=== PATIENT | female | born 2000 | race African-American/Black ===

== ENCOUNTER 2019-02-17 12:41 | Emergency (ER) | payer SELFPAY ==
--- NOTE | 2019-02-17 13:17 | ER ---
Nurse's Notes [facility] Name: Reema Jackman Age: 18 yrs Sex: Female : 2000 Arrival Date: 02/17/2019 Time: 12:42 Bed 9 Private MD: Diagnosis: Low back pain Presentation: 02/17 13:03 Presenting complaint: Patient states: "My back was hurting earlier today, but its not aj1 hurting anymore, but my job said I had to come in and get a note saying that its not hurting and I have no restrictions". Transition of care: patient was not received from another setting of care. Onset of symptoms was February 17, 2019. Risk Assessment: Do you want to hurt yourself or someone else? Patient reports no desire to harm self or others. Initial Sepsis Screen: Does the patient meet any 2 criteria? No. Patient's initial sepsis screen is negative. Does the patient have a suspected source of infection? No. Patient's initial sepsis screen is negative. Care prior to arrival: None. 13:03 Method Of Arrival: Ambulatory [facility] 13:03 Acuity: ADITYA 5 aj1 Triage Assessment: 13:04 General: Appears in no apparent distress. comfortable, Behavior is calm, cooperative, aj1 appropriate for age. Pain: Denies pain. EENT: No signs and/or symptoms were reported regarding the EENT system. Neuro: Level of Consciousness is awake, alert, obeys commands. Cardiovascular: Patient's skin is warm and dry. Respiratory: Airway is patent Respiratory effort is even, unlabored, Respiratory pattern is regular, symmetrical. GI: No signs and/or symptoms were reported involving the gastrointestinal system. : No signs and/or symptoms were reported regarding the genitourinary system. Derm: No signs and/or symptoms reported regarding the dermatologic system. Skin is pink, warm \\T\\ dry. normal. Musculoskeletal: No signs and/or symptoms reported regarding the musculoskeletal system. Circulation, motion, and sensation intact. 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 - Social history:: Smoking status: Patient/guardian denies using tobacco. - Ebola Screening: : Patient denies travel to an Ebola-affected area in the 21 days before illness onset. - Family history:: not pertinent. - Hospitalizations: : No recent hospitalization is reported. Screenin:05 Abuse screen: Denies threats or abuse. Denies injuries from another. Nutritional aj1 screening: No deficits noted. Tuberculosis screening: No symptoms or risk factors identified. Fall Risk None identified. Assessment: 13:05 Reassessment: see triage assessment. aj1 13:05 General: Appears comfortable, Behavior is calm, cooperative. Pain: Denies pain. Neuro: aa5 Level of Consciousness is awake, alert, obeys commands, Oriented to person, place, time, situation. Cardiovascular: Patient's skin is warm and dry. Respiratory: Airway is patent Respiratory effort is even, unlabored, Respiratory pattern is regular, symmetrical. GI: No signs and/or symptoms were reported involving the gastrointestinal system. : No signs and/or symptoms were reported regarding the genitourinary system. EENT: No signs and/or symptoms were reported regarding the EENT system. Derm: Skin is dry, Skin is normal, Skin temperature is warm. Musculoskeletal: Range of motion: intact in all extremities. Vital Signs: 13:04 BP 126 / 85; Pulse 88; Resp 18; Temp 97.7; Pulse Ox 100% on R/A; Weight 77.11 kg (R); aj1 Height 5 ft. 1 in. (154.94 cm) (R); Pain 0/10; 13:04 Body Mass Index 32.12 (77.11 kg, 154.94 cm) aj1 ED Course: 12:42 Patient arrived in ED. as 13:03 Triage completed. aj1 13:04 Arm band placed on Patient placed in an exam room. aj1 13:05 Patient has correct armband on for positive identification. Call light in reach. aj1 13:05 No provider procedures requiring assistance completed. aj1 13:11 Petros Trammell MD is Attending Physician. rn 13:25 Patient did not have IV access during this emergency room visit. aa5 13:26 Nataliya Higgins, RN is Primary Nurse. aa5 Administered Medications: No medications were administered Outcome: 13:17 Discharge ordered by . rn 13:25 Discharged to home ambulatory. aa5 13:25 Condition: good 13:25 Discharge instructions given to patient, Instructed on discharge instructions, follow up and referral plans. Demonstrated understanding of instructions, follow-up care. 13:28 Patient left the ED. aa5 Signatures: Germania Mcdaniel RN RN aj1 Nina Yadav Roman, MD MD rn Calderon, Audri, RN RN aa5
--- NOTE | 2019-02-17 13:18 | EDPHYS ---
Physician Documentation [facility] Name: Reema Jackman Age: 18 yrs Sex: Female : 2000 Arrival Date: 02/17/2019 Time: 12:42 Bed 9 Private MD: ED Physician Petros Trammell HPI: 02/17 13:14 This 18 yrs old Black Female presents to ER via Ambulatory with complaints of Back Pain.rn 13:14 The patient presents with pain that is acute, with no known mechanism of injury. The rn symptoms are located in the low back. Onset: The symptoms/episode began/occurred last night. The pain does not radiate. Associated signs and symptoms: The patient has no apparent associated signs or symptoms, Pertinent negatives: abdominal pain, chest pain, constipation, dysuria, fever, headache, hematuria, incontinence, nausea, numbness, tingling, urinary retention, vomiting, weakness. Modifying factors: The patient symptoms are alleviated by OTC meds, rest, the patient symptoms are aggravated by nothing. Severity of symptoms: At their worst the symptoms were mild, in the emergency department the symptoms have resolved. Reports had back pain last night, no injury, no focal neuro complaints, no bowel/bladder issues, now resolved. Reports came here for release to work and nothing else. . 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 - Social history:: Smoking status: Patient/guardian denies using tobacco. - Ebola Screening: : Patient denies travel to an Ebola-affected area in the 21 days before illness onset. - Family history:: not pertinent. - Hospitalizations: : No recent hospitalization is reported. ROS: 13:14 Constitutional: Negative for fever, chills, and weight loss, Eyes: Negative for injury, rn pain, redness, and discharge, Cardiovascular: Negative for chest pain, palpitations, and edema, Respiratory: Negative for shortness of breath, cough, wheezing, and pleuritic chest pain, Abdomen/GI: Negative for abdominal pain, nausea, vomiting, diarrhea, and constipation, Back: Negative for injury : Negative for injury, bleeding, discharge, and swelling, MS/Extremity: Negative for injury and deformity, Skin: Negative for injury, rash, and discoloration, Neuro: Negative for headache, weakness, numbness, tingling, and seizure. Exam: 13:14 Constitutional: This is a well developed, well nourished patient who is awake, alert, rn and in no acute distress. Head/Face: Normocephalic, atraumatic. Neuro: Awake and alert, GCS 15, oriented to person, place, time, and situation. Cranial nerves II-XII grossly intact. Motor strength 5/5 in all extremities. Sensory grossly intact. Cerebellar exam normal. Normal gait. Vital Signs: 13:04 BP 126 / 85; Pulse 88; Resp 18; Temp 97.7; Pulse Ox 100% on R/A; Weight 77.11 kg (R); aj1 Height 5 ft. 1 in. (154.94 cm) (R); Pain 0/10; 13:04 Body Mass Index 32.12 (77.11 kg, 154.94 cm) aj1 MDM: 13:11 Patient medically screened. rn 13:14 Differential diagnosis: Fatigue Osteoarthritis muscle spasm. Data reviewed: vital rn signs, nurses notes, and as a result, I will discharge patient. Counseling: I had a detailed discussion with the patient and/or guardian regarding: the historical points, exam findings, and any diagnostic results supporting the discharge/admit diagnosis, the need for outpatient follow up, to return to the emergency department if symptoms worsen or persist or if there are any questions or concerns that arise at home. Special discussion: I discussed with the patient/guardian in detail that at this point there is no indication for admission to the hospital. It is understood, however, that if the symptoms persist or worsen the patient needs to return immediately for re-evaluation. Administered Medications: No medications were administered Disposition: 02/17/19 13:17 Discharged to Home. Impression: Low back pain. - Condition is Stable. - Discharge Instructions: Back Pain, Adult, Musculoskeletal Pain. - Medication Reconciliation Form, Thank You Letter, Antibiotic Education, Prescription Opioid Use, Work release form form. - Follow up: Private Physician; When: As needed; Reason: Recheck today's complaints, Re-evaluation by your physician. - Problem is new. - Symptoms have improved. Signatures: Germania Mcdaniel RN RN aj1 Petros Trammell MD MD rn Calderon, Audri, RN RN aa5 Corrections: (The following items were deleted from the chart) 13:28 13:17 02/17/2019 13:17 Discharged to Home. Impression: Low back pain. Condition is aa5 Stable. Forms are Medication Reconciliation Form, Thank You Letter, Antibiotic Education, Prescription Opioid Use. Follow up: Private Physician; When: As needed; Reason: Recheck today's complaints, Re-evaluation by your physician. Problem is new. Symptoms have improved. rn
[2019-02-17 13:39] VITALS: BP 126/85; TEMP 97.7; O2SAT 100
== END 2019-02-17 13:28 | disposition home or self-care (01) ==
LOC: ER 12:41
DX: M54.5 Low back pain (principal); I10 Essential (primary) hypertension
CPT/HCPCS: 99281

== ENCOUNTER 2019-03-17 19:15 | Emergency (ER) | payer SELFPAY ==
--- NOTE | 2019-03-17 19:57 | ER ---
Nurse's Notes [facility] Name: Reema Jackman Age: 19 yrs Sex: Female : 2000 Arrival Date: 03/17/2019 Time: 19:16 Bed 9 Private MD: Diagnosis: Dermatitis, unspecified Presentation: 03/17 19:21 Presenting complaint: Patient states: I have a rash in my vaginal area that has been tl1 there for 2 weeks. It doesn't itch or burn it just is sore when I wipe. Transition of care: patient was not received from another setting of care. Onset of symptoms is unknown. Risk Assessment: Do you want to hurt yourself or someone else? Patient reports no desire to harm self or others. Initial Sepsis Screen: Does the patient meet any 2 criteria? No. Patient's initial sepsis screen is negative. Does the patient have a suspected source of infection? No. Patient's initial sepsis screen is negative. Care prior to arrival: None. 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 - Social history:: Smoking status: Patient/guardian denies using tobacco, Patient/guardian denies using alcohol, street drugs. - Ebola Screening: : Patient negative for fever greater than or equal to 101.5 degrees Fahrenheit, and additional compatible Ebola Virus Disease symptoms Patient denies exposure to infectious person Patient denies travel to an Ebola-affected area in the 21 days before illness onset. Screenin:12 Abuse screen: Denies threats or abuse. Denies injuries from another. Nutritional aj1 screening: No deficits noted. Tuberculosis screening: No symptoms or risk factors identified. 20:13 Fall Risk None identified. aj1 Assessment: 20:12 General: Appears in no apparent distress. comfortable, Behavior is calm, cooperative, aj1 appropriate for age. Pain: Denies pain. Neuro: Level of Consciousness is awake, alert, obeys commands. Cardiovascular: Patient's skin is warm and dry. Respiratory: Airway is patent Respiratory effort is even, unlabored, Respiratory pattern is regular, symmetrical. GI: No signs and/or symptoms were reported involving the gastrointestinal system. : Reports she feels like she has a rash near her vagina. EENT: No signs and/or symptoms were reported regarding the EENT system. Derm: No signs and/or symptoms reported regarding the dermatologic system. Skin is pink, warm \T\ dry. normal. Musculoskeletal: No signs and/or symptoms reported regarding the musculoskeletal system. Circulation, motion, and sensation intact. Vital Signs: 19:23 BP 141 / 86; Pulse 86; Resp 18; Temp 98; Pulse Ox 99% on R/A; Weight 72.57 kg; Height 5 tl1 ft. 0 in. (152.40 cm); Pain 0/10; 19:23 Body Mass Index 31.25 (72.57 kg, 152.40 cm) tl1 ED Course: 19:16 Patient arrived in ED. cl3 19:23 Triage completed. tl1 19:25 Arm band placed on right wrist. tl1 19:30 Adi Easton MD is Attending Physician. tw4 20:11 Germania Mcdaniel RN is Primary Nurse. aj1 20:12 Patient has correct armband on for positive identification. Bed in low position. Call aj1 light in reach. 20:12 No provider procedures requiring assistance completed. Patient did not have IV access aj1 during this emergency room visit. Administered Medications: No medications were administered Outcome: 19:56 Discharge ordered by . tw4 20:12 Discharged to home ambulatory. aj1 20:12 Condition: good 20:12 Discharge instructions given to patient, Instructed on discharge instructions, follow up and referral plans. Demonstrated understanding of instructions, follow-up care. 20:13 Patient left the ED. aj1 Signatures: Germania Mcdaniel, DIEGO RN aj1 Jodi Schaefer RN RN tl1 Adi Easton MD MD tw4 Edgar Vo cl3
[2019-03-17 21:59] VITALS: BP 141/86; TEMP 98; O2SAT 99
--- NOTE | 2019-03-18 20:17 | EDPHYS ---
Physician Documentation [facility] Name: Reema Jackman Age: 19 yrs Sex: Female : 2000 Arrival Date: 03/17/2019 Time: 19:16 Bed 9 Private MD: ED Physician Adi Easton HPI: 03/18 01:28 This 19 yrs old Black Female presents to ER via Ambulatory with complaints of Rash. tw4 01:28 The patient's rash thought to be caused by an unknown cause. The rash is located on the tw4 groin. The rash can be described as flat. 01:29 Onset: The symptoms/episode began/occurred 2 week(s) ago. Associated signs and tw4 symptoms: Pertinent positives: None. Pertinent negatives: None. Severity of symptoms: At their worst the symptoms were very mild in the emergency department the symptoms are unchanged. The patient has not experienced similar symptoms in the past. 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 - Social history:: Smoking status: Patient/guardian denies using tobacco, Patient/guardian denies using alcohol, street drugs. - Ebola Screening: : Patient negative for fever greater than or equal to 101.5 degrees Fahrenheit, and additional compatible Ebola Virus Disease symptoms Patient denies exposure to infectious person Patient denies travel to an Ebola-affected area in the 21 days before illness onset. ROS: 03/18 01:29 Constitutional: Negative for fever, chills, and weight loss, Eyes: Negative for injury, tw4 pain, redness, and discharge, Cardiovascular: Negative for chest pain, palpitations, and edema, Respiratory: Negative for shortness of breath, cough, wheezing, and pleuritic chest pain, Abdomen/GI: Negative for abdominal pain, nausea, vomiting, diarrhea, and constipation, Back: Negative for injury and pain, MS/Extremity: Negative for injury and deformity, Neuro: Negative for headache, weakness, numbness, tingling, and seizure. Skin: Positive for rash, Negative for abrasions, abscesses, avulsion, burn, ecchymosis, erythema, hematoma, jaundice, laceration(s). Exam: 01:29 Constitutional: This is a well developed, well nourished patient who is awake, alert, tw4 and in no acute distress. Head/Face: Normocephalic, atraumatic. Chest/axilla: Normal chest wall appearance and motion. Nontender with no deformity. No lesions are appreciated. Cardiovascular: Regular rate and rhythm with a normal S1 and S2. No gallops, murmurs, or rubs. Normal PMI, no JVD. No pulse deficits. Respiratory: Lungs have equal breath sounds bilaterally, clear to auscultation and percussion. No rales, rhonchi or wheezes noted. No increased work of breathing, no retractions or nasal flaring. Abdomen/GI: Soft, non-tender, with normal bowel sounds. No distension or tympany. No guarding or rebound. No evidence of tenderness throughout. :29 : Pelvic Exam: External exam: excoriated flat lesion 2cm perineum, no erythema no evidence of cellulits. Vital Signs: 03/17 19:23 BP 141 / 86; Pulse 86; Resp 18; Temp 98; Pulse Ox 99% on R/A; Weight 72.57 kg; Height 5 tl1 ft. 0 in. (152.40 cm); Pain 0/10; 19:23 Body Mass Index 31.25 (72.57 kg, 152.40 cm) tl1 MDM: 19:30 Patient medically screened. tw4 03/18 01:29 Differential diagnosis: impetigo, allergic reaction. Differential diagnosis: venereal tw4 warts. Data reviewed: vital signs, nurses notes. Data interpreted: Pulse oximetry: Interpretation: normal. Counseling: I had a detailed discussion with the patient and/or guardian regarding: the historical points, exam findings, and any diagnostic results supporting the discharge/admit diagnosis. Special discussion: I discussed with the patient/guardian in detail that at this point there is no indication for admission to the hospital. It is understood, however, that if the symptoms persist or worsen the patient needs to return immediately for re-evaluation. Administered Medications: No medications were administered Disposition: 03/17/19 19:56 Discharged to Home. Impression: Dermatitis, unspecified. - Condition is Stable. - Discharge Instructions: Rash. - Medication Reconciliation Form, Thank You Letter, Antibiotic Education, Prescription Opioid Use form. - Follow up: Private Physician; When: Upon discharge from the Emergency Department; Reason: Recheck today's complaints, Continuance of care. - Problem is new. - Symptoms are unchanged. Signatures: Germania Mcdaniel RN RN aj1 Jodi Schaefer RN RN tl1 Adi Easton MD MD tw4 Corrections: (The following items were deleted from the chart) 03/17 20:13 19:56 03/17/2019 19:56 Discharged to Home. Impression: Dermatitis, unspecified. aj1 Condition is Stable. Forms are Medication Reconciliation Form, Thank You Letter, Antibiotic Education, Prescription Opioid Use. Follow up: Private Physician; When: Upon discharge from the Emergency Department; Reason: Recheck today's complaints, Continuance of care. Problem is new. Symptoms are unchanged. tw4
== END 2019-03-17 20:13 | disposition home or self-care (01) ==
LOC: ER 19:15
DX: L30.9 Dermatitis, unspecified (principal); I10 Essential (primary) hypertension
CPT/HCPCS: 99281